=== PATIENT | male | born 1960 | race Caucasian/White ===

== ENCOUNTER 2017-06-01 16:17 | Inpatient (IN) | payer OTHER ==
[2017-06-01] MEDS ORDERED: NS 1,000 ML IV ONE (16:28)
--- NOTE | 2017-06-01 16:28 | EDPHY ---
H & P Stated Complaint: sob/cough/fever/hypoxia sick 11 days Source: Patient Exam Limitations: No limitations - Personal History Current Tetanus/Diphtheria Vaccine: Yes - Medical/Surgical History Hx Asthma: No Hx Chronic Respiratory Disease: No Hx Diabetes: No Hx Cardiac Disease: No Hx Renal Disease: No Hx Cirrhosis: No Hx Alcoholism: No Hx HIV/AIDS: No Hx Splenectomy or Spleen Trauma: No Other PMH: orho surg/mesh hernia - Social History Smoking Status: Never smoked Time Seen by Provider: 06/01/17 16:27 HPI/ROS: HPI: This is a 56-year-old male who presents with Chief Complaint: Possible pneumonia and hypoxia Location: Chest Quality: Cough Duration: 1 week Signs and Symptoms: + fever, + chills, + fatigue, + nonproductive cough, + shortness of breath, no chest pain, no wheezing, no lower extremity edema Timing: Gradually worsening Severity: Moderate Context: Patient presents with complaints of nonproductive cough, fever, chills , and worsening shortness of breath over the last week. His fever has been high as 104 at home and occurs mostly at 4:30 a.m. in the morning. He believes that he initially had the flu and now may have pneumonia. He was sent to the emergency room by his home visit physician who noted his sats to be 86% on room air. No prior history of lung disease/tobacco use. No history of cardiac disease. Last dose of ibuprofen was at 4:00 p.m. no other family members are sick. He has been trying to drink fluids, rest and take antipyretics. He complains that his abdominal muscles hurt from coughing so much. Modifying Factors: Ibuprofen, fluids, rest Comment: ROS: see HPI Constitutional: + fever, + chills, no weight loss Eyes: No blurred vision Respiratory: + shortness of breath, + cough Cardiovascular: No chest pain Gastrointestinal: No nausea, no vomiting, no diarrhea Genitourinary: No dysuria Extremities: No myalgias Neurologic: No weakness, no numbness Skin: No rashes Hematologic: No bruising, no bleeding MEDICAL/SURGICAL/SOCIAL HISTORY: Medical history: Generally healthy. Does not take any regular medications. Surgical history: Umbilical hernia repair with mesh, labral repair, rotator cuff repair Social history: . Employed. CONSTITUTIONAL: Ill-appearing adult white male, pleasant and cooperative, at bedside, awake and alert, no obvious distress HEENT: Atraumatic and normocephalic, PERRL, EOMI. Tympanic membranes clear. Oropharynx clear, no exudate and moist pink mucosa. Airway patent. No lymphadenopathy. No meningismus. Cardiovascular: Normal S1/S2, tachycardia, regular rhythm, without murmur rub or gallop. PULMONARY/CHEST: Symmetrical and nontender. Clear to auscultation bilaterally. Good air movement. No accessory muscle usage. ABDOMEN: Soft, nondistended, nontender, no rebound, no guarding, no peritoneal signs, no masses or organomegaly. No CVAT. EXTREMITIES: 2/2 pulses, no deformities, no clubbing, no cyanosis or edema. NEUROLOGICAL: no focal neuro deficits. GCS 15. SKIN: Warm and dry, no erythema. no rash. Good capillary refill. (Clemencia Mcmillan) Constitutional: Initial Vital Signs Temperature (C) 39.2 C H 06/01/17 16:21 Heart Rate 105 H 06/01/17 16:21 Respiratory Rate 20 06/01/17 16:21 Blood Pressure 156/82 H 06/01/17 16:21 O2 Sat (%) 83 L 06/01/17 16:21 O2 Delivery Mode Nasal Cannula O2 (L/minute) 3 Allergies/Adverse Reactions: No Known Allergies Allergy (Verified 06/01/17 17:25) Home Medications: Medication Instructions Recorded Acetaminophen/ASA/Caffeine 1 each PO DAILY PRN 06/01/17 [Excedrin Tablet (*)] Ibuprofen [Motrin (*)] 200 - 600 mg PO Q4-6PRN PRN 06/01/17 [place]-3 Fatty Acids [Fish Oil 1000 1,000 mg PO DAILY 06/01/17 mg (*)] Pseudoephedrine HCl [Sudafed 12 120 mg PO BID PRN 06/01/17 Hour 120mg (*)] guaiFENesin/DEXTROMETHORPHAN 1 each PO BID@08,20 PRN 06/01/17 [Mucinex Dm ER 1,200-60 mg Tab] Medical Decision Making - Diagnostics Imaging Results: Imaging Impressions Chest X-Ray 06/01/17 16:28 Impression: Bilateral pneumonia. Chest/Thorax CTA 06/01/17 17:18 Impression: 1. No pulmonary embolism. 2. Extensive multilobar pneumonia. Basically the only segment that is relatively spared is left upper lobe. Findings discussed with Clemencia Mcmillan PA-C, at 1834 hours, 06/01/2017. Final report concurs with initial preliminary interpretation. Procedures: 12 lead EKG: Indication: Dyspnea Rhythm: Sinus tachycardia, rate 99 bpm [place]: Normal Intervals: Normal QRS: Normal ST segments: Normal T waves: Nonspecific changes INTERPRETATION: No acute ischemic changes The 12 lead EKG was interpreted by myself and with attending. (Clemencia Mcmillan) ED Course/Re-evaluation: The patient was evaluated and managed by the physician's sales operations assistant. My cosignature indicates that I reviewed the chart and I agree with the findings and plan of care as documented. I am the secondary supervising physician. ( Tanya Rojas) Labs, chest x-ray, EKG, IV fluids, oral medications, blood cultures, IV medication, nebulizer therapy ordered Vital signs upon arrival noted and O2 sats 83% on room air, tachycardic, febrile Sepsis workup initiated for pulmonary source. 1700: Chest x-ray reviewed via PACs and shows bilateral opacities in the lower lobes as well as right middle lobe. IV Rocephin and Zithromax given. 1718: Labs reviewed: Leukocytosis and elevated D-dimer noted; CTA chest ordered no pulmonary embolism 1920: ED decision to consult for admission. Spoke with hospitalist Dr. Cherie Raygoza who kindly accepts patient (Clemencia Mcmillan) Differential Diagnosis: Shortness of breath including but not limited to pulmonary infectious process, COPD, asthma, pulmonary embolus and congestive heart failure. (Clemencia Mcmillan) - Data Points Laboratory Results: Laboratory Results 06/01/17 16:35 06/01/17 16:35 06/01/17 06/01/17 06/01/17 19:10 16:35 16:35 WBC RBC Hgb Hct MCV MCH MCHC RDW Plt Count MPV Neut % (Auto) Lymph % (Auto) [place] % (Auto) Eos % (Auto) Baso % (Auto) Nucleat RBC Rel Count Absolute Neuts (auto) Absolute Lymphs (auto) Absolute Monos (auto) Absolute Eos (auto) Absolute Basos (auto) Absolute Nucleated RBC Immature Gran % Seg Neutrophils % Band Neutrophils % Lymphocytes % Monocytes % Eosinophils % Immature Gran # Absolute Seg Neuts Absolute Band Neuts Absolute Lymphocytes Absolute Monocytes Absolute Eosinophils RBC/WBC/PLT Morphology Platelet Estimate D-Dimer 3.57 ug/mLFEU H ug/mLFEU (0.00-0.50) VBG Lactic Acid Sodium 134 mEq/L mEq/L (134-144) Potassium 4.1 mEq/L mEq/L (3.5-5.2) Chloride 95 mEq/L L mEq/L (97-110) Carbon Dioxide 26 mEq/l mEq/l (22-31) Anion Gap 13 mEq/L mEq/L (8-16) BUN 7 mg/dL mg/dL (7-23) Creatinine 0.9 mg/dL mg/dL (0.7-1.3) Estimated GFR > 60 Glucose 136 mg/dL H mg/dL (70-100) Calcium 8.5 mg/dL mg/dL (8.5-10.4) Troponin I < 0.012 ng/mL ng/mL (0.000-0.034) NT-Pro-B Natriuret Pep 273 pg/mL H pg/mL (0-125) Urine Color Pending Urine Appearance Pending Urine pH Pending Ur Specific [place] Pending Urine Protein Pending Urine Ketones Pending Urine Blood Pending Urine Nitrate Pending Urine Bilirubin Pending Urine Urobilinogen Pending Ur Leukocyte Esterase Pending Urine Glucose Pending 06/01/17 06/01/17 16:35 16:35 WBC 16.36 10^3/uL H 10^3/uL (3.80-9.50) RBC 3.82 10^6/uL L 10^6/uL (4.40-6.38) Hgb 12.7 g/dL L g/dL (13.7-17.5) Hct 35.9 % L % (40.0-51.0) MCV 94.0 fL fL (81.5-99.8) MCH 33.2 pg pg (27.9-34.1) MCHC 35.4 g/dL g/dL (32.4-36.7) RDW 13.2 % % (11.5-15.2) Plt Count 519 10^3/uL H 10^3/uL (150-400) MPV 8.6 fL L fL (8.7-11.7) Neut % (Auto) Not Reported Lymph % (Auto) Not Reported [place] % (Auto) Not Reported Eos % (Auto) Not Reported Baso % (Auto) Not Reported Nucleat RBC Rel Count 0.0 % % (0.0-0.2) Absolute Neuts (auto) Not Reported Absolute Lymphs (auto) Not Reported Absolute Monos (auto) Not Reported Absolute Eos (auto) Not Reported Absolute Basos (auto) Not Reported Absolute Nucleated RBC 0.00 10^3/uL 10^3/uL (0-0.01) Immature Gran % Not Reported Seg Neutrophils % 59 % % Band Neutrophils % 25 % % Lymphocytes % 8 % % Monocytes % 6 % % Eosinophils % 2 % % Immature Gran # Not Reported Absolute Seg Neuts 9.65 10^/uL H 10^/uL (1.70-6.50) Absolute Band Neuts 4.09 10^3/uL H 10^3/uL (0.00-0.70) Absolute Lymphocytes 1.31 10^3/uL 10^3/uL (1.00-3.00) Absolute Monocytes 0.98 10^3/uL H 10^3/uL (0.30-0.80) Absolute Eosinophils 0.33 10^3/uL 10^3/uL (0.03-0.40) RBC/WBC/PLT Morphology NORMAL (NORMAL) Platelet Estimate INCREASED H (ADEQ) D-Dimer VBG Lactic Acid 1.0 mmol/L mmol/L (0.7-2.1) Sodium Potassium Chloride Carbon Dioxide Anion Gap BUN Creatinine Estimated GFR Glucose Calcium Troponin I NT-Pro-B Natriuret Pep Urine Color Urine Appearance Urine pH Ur Specific [place] Urine Protein Urine Ketones Urine Blood Urine Nitrate Urine Bilirubin Urine Urobilinogen Ur Leukocyte Esterase Urine Glucose Microbiology Results: MICROBIOLOGY 06/01/17 17:10 Nasal, Sinus - Swab Respiratory Panel (PCR) - Final Mycoplasma Pneumoniae Detected Medications Given: Discontinued Medications Acetaminophen (Tylenol) 1,000 mg PO EDNOW ONE Stop: 06/01/17 16:36 Last Admin: 06/01/17 16:44 Dose: 1,000 mg Sodium Chloride (Ns) 1,000 mls @ 0 mls/hr IV ONCE ONE; Wide Open PRN Reason: Protocol Stop: 06/01/17 16:29 Last Admin: 06/01/17 16:45 Dose: 1,000 mls Sodium Chloride (Ns) 2,200 mls @ 4,400 mls/hr 30 ml/kg infuse over 30 min ( 2200 ml) IV EDNOW ONE PRN Reason: Protocol Stop: 06/01/17 17:07 Last Admin: 06/01/17 16:51 Dose: 2,200 mls Azithromycin 500 mg/ Dextrose 255 mls @ 255 mls/hr IV EDNOW ONE PRN Reason: Protocol Stop: 06/01/17 18:03 Last Admin: 06/01/17 18:51 Dose: 255 mls Ceftriaxone Sodium 2 gm/ (Dextrose) 50 mls @ 100 mls/hr IV EDNOW ONE PRN Reason: Protocol Stop: 06/01/17 17:33 Last Admin: 06/01/17 17:48 Dose: 50 mls Levalbuterol (Xopenex 0.31mg Neb) 0.31 mg IH EDNOW ONE Stop: 06/01/17 16:33 Last Admin: 06/01/17 16:52 Dose: 0.31 mg Departure - Departure Disposition: [facility] Inpatient Acute Clinical Impression: Community acquired pneumonia Qualifiers: Laterality: unspecified laterality Qualified Code(s): J18.9 - Pneumonia, unspecified organism
[2017-06-01] MEDS ORDERED: LEVALBUTEROL 0.31 MG/3 ML DEYVIAL IH ONE (16:32)
[2017-06-01] MEDS ORDERED: ACETAMINOPHEN 500 MG TAB PO ONE (16:35)
[2017-06-01] MEDS ORDERED: NS 2,200 ML IV ONE (16:38)
[2017-06-01 16:43] LABS: ADD DIFF? YES; ADD MORPH? NO; ADD SCAN? NO; ATYPICAL LYMPHOCYTE FLAG 80 (0-99); FRAGMENT RBC FLAG 0 (0-99); HEMATOCRIT 35.9 % (40.0-51.0); HEMOGLOBIN 12.7 g/dL (13.7-17.5); LEFT SHIFT FLG 30 (0-99); LIPEMIA HEMOLYSIS FLAG 90 (0-99); MEAN CELL HEMOGLOBIN 33.2 pg (27.9-34.1); MEAN CELL HEMOGLOBIN CONCENTR. 35.4 g/dL (32.4-36.7); MEAN PLATELET VOLUME 8.6 fL (8.7-11.7); PLATELET CLUMPS FLAG 0 (0-99); PLATELET COUNT 519 10^3/uL (150-400); RED BLOOD CELL COUNT 3.82 10^6/uL (4.40-6.38); RED CELL DISTRIBUTION WIDTH 13.2 % (11.5-15.2)
--- NOTE | 2017-06-01 16:48 | CPEKG ---
Heart Rate: 99 RR Interval: 606 P-R Interval: 152 QRSD Interval: 94 QT Interval: 328 QTC Interval: 421 P [place]: 2 QRS [place]: 54 T Wave [place]: -7 EKG Severity - BORDERLINE ECG - EKG Impression: SINUS RHYTHM EKG Impression: BORDERLINE T ABNORMALITIES, INFERIOR LEADS Electronically Signed By: Tanya Rojas 01-Jun-2017 20:36:44
[2017-06-01 17:04] LABS: ANION GAP 13 mEq/L (8-16); CALCIUM 8.5 mg/dL (8.5-10.4); CARBON DIOXIDE 26 mEq/l (22-31); CHLORIDE 95 mEq/L (97-110); CREATININE 0.9 mg/dL (0.7-1.3); GLOMERULAR FILTRATION RATE > 60; GLUCOSE 136 mg/dL (70-100); POTASSIUM 4.1 mEq/L (3.5-5.2); SODIUM 134 mEq/L (134-144)
[2017-06-01] MEDS ORDERED: cefTRIAXone 2 GM in D5W 50 ML IV ONE (17:04)
[2017-06-01] MEDS ORDERED: AZITHROMYCIN IV 500 MG in D5W 250 ML IV ONE (17:04)
[2017-06-01 17:16] LABS: TROPONIN I < 0.012 ng/mL (0.000-0.034)
[2017-06-01 17:33] LABS: PLATELET ESTIMATE INCREASED (ADEQ)
[2017-06-01] MEDS ORDERED: IOPAMIDOL (ISOVUE 370) 100 ML BTL IV ONE (17:55)
[2017-06-01 19:24] LABS: COLOR PALE YELLOW; LEUKOCYTE ESTERASE,URINE NEGATIVE (NEGATIVE); NITRITE,URINE NEGATIVE (NEGATIVE)
[2017-06-01] MEDS ORDERED: ONDANSETRON 4 MG/2 ML VIAL IVP PRN (22:05)
[2017-06-01] MEDS ORDERED: ONDANSETRON DISINTEGRATING 4 MG TAB PO PRN (22:05)
[2017-06-01] MEDS ORDERED: ALBUTEROL 3 ML DEYVIAL IH PRN (22:05)
--- NOTE | 2017-06-02 00:39 | PDGENHP ---
History and Physical - Chief Complaint Cough - History of Present Illness 56 yo M w/ no significant PMHx presents with 1 week of respiratory symptoms. Patient reports 1 week of fever, chills, sinus pain, cough, and progressive shortness of breath. This progressed until he decided to come the ED today. He has no significant past pulmonary history. History Information - Allergies/Home Medication List Allergies/Adverse Reactions: No Known Allergies Allergy (Verified 06/01/17 17:25) Home Medications: Acetaminophen/ASA/Caffeine [Excedrin Tablet (*)] 1 each PO DAILY PRN 06/01/17 [ Last Taken 06/01/17] Ibuprofen [Motrin (*)] 200 - 600 mg PO Q4-6PRN PRN 06/01/17 [Last Taken 12:00] [place]-3 Fatty Acids [Fish Oil 1000 mg (*)] 1,000 mg PO DAILY 06/01/17 [Last Taken Unknown] Pseudoephedrine HCl [Sudafed 12 Hour 120mg (*)] 120 mg PO BID PRN 06/01/17 [ Last Taken 05/31/17] guaiFENesin/DEXTROMETHORPHAN [Mucinex Dm ER 1,200-60 mg Tab] 1 each PO BID@08, 20 PRN 06/01/17 [Last Taken 06/01/17] I have personally reviewed and updated: family history, medical history - Past Medical History no pertinent PMH - Family History Positive for: cancer - Social History Smoking Status: Never smoked Review of Systems Review of Systems: ROS: 10pt was reviewed & negative except for what was stated in HPI & below Physical Exam Physical Exam: Temp Pulse Resp BP Pulse Ox 36.5 C 80 18 110/84 H 91 L 06/01/17 20:23 06/01/17 20:23 06/01/17 20:23 06/01/17 20:23 06/01/17 20:23 O2 (L/minute) 3 Constitutional: no apparent distress, appears nourished Eyes: PERRL, EOMI Ears, Nose, Mouth, Throat: moist mucous membranes, no oral mucosal ulcers Cardiovascular: regular rate and rhythym, no murmur, rub, or gallop Respiratory: no respiratory distress, rhonchi (Diffuse) Gastrointestinal: normoactive bowel sounds, soft, non-tender abdomen Skin: warm, normal color Musculoskeletal: full muscle strength, no muscle tenderness Neurologic: AAOx3, CN II-XII Intact Psychiatric: interacting appropriately, not anxious Lab Data & Imaging Review 06/01/17 16:35 06/01/17 16:35 WBC 16.36 10^3/uL (3.80-9.50) H 06/01/17 16:35 RBC 3.82 10^6/uL (4.40-6.38) L 06/01/17 16:35 Hgb 12.7 g/dL (13.7-17.5) L 06/01/17 16:35 Hct 35.9 % (40.0-51.0) L 06/01/17 16:35 MCV 94.0 fL (81.5-99.8) 06/01/17 16:35 MCH 33.2 pg (27.9-34.1) 06/01/17 16:35 MCHC 35.4 g/dL (32.4-36.7) 06/01/17 16:35 RDW 13.2 % (11.5-15.2) 06/01/17 16:35 Plt Count 519 10^3/uL (150-400) H 06/01/17 16:35 MPV 8.6 fL (8.7-11.7) L 06/01/17 16:35 Neut % (Auto) Not Reported 06/01/17 16:35 Lymph % (Auto) Not Reported 06/01/17 16:35 [place] % (Auto) Not Reported 06/01/17 16:35 Eos % (Auto) Not Reported 06/01/17 16:35 Baso % (Auto) Not Reported 06/01/17 16:35 Nucleat RBC Rel Count 0.0 % (0.0-0.2) 06/01/17 16:35 Absolute Neuts (auto) Not Reported 06/01/17 16:35 Absolute Lymphs (auto) Not Reported 06/01/17 16:35 Absolute Monos (auto) Not Reported 06/01/17 16:35 Absolute Eos (auto) Not Reported 06/01/17 16:35 Absolute Basos (auto) Not Reported 06/01/17 16:35 Absolute Nucleated RBC 0.00 10^3/uL (0-0.01) 06/01/17 16:35 Immature Gran % Not Reported 06/01/17 16:35 Seg Neutrophils % 59 % 06/01/17 16:35 Band Neutrophils % 25 % 06/01/17 16:35 Lymphocytes % 8 % 06/01/17 16:35 Monocytes % 6 % 06/01/17 16:35 Eosinophils % 2 % 06/01/17 16:35 Immature Gran # Not Reported 06/01/17 16:35 Absolute Seg Neuts 9.65 10^/uL (1.70-6.50) H 06/01/17 16:35 Absolute Band Neuts 4.09 10^3/uL (0.00-0.70) H 06/01/17 16:35 Absolute Lymphocytes 1.31 10^3/uL (1.00-3.00) 06/01/17 16:35 Absolute Monocytes 0.98 10^3/uL (0.30-0.80) H 06/01/17 16:35 Absolute Eosinophils 0.33 10^3/uL (0.03-0.40) 06/01/17 16:35 RBC/WBC/PLT Morphology NORMAL (NORMAL) 06/01/17 16:35 Platelet Estimate INCREASED (ADEQ) H 06/01/17 16:35 D-Dimer 3.57 ug/mLFEU (0.00-0.50) H 06/01/17 16:35 VBG Lactic Acid 1.0 mmol/L (0.7-2.1) 06/01/17 16:35 Sodium 134 mEq/L (134-144) 06/01/17 16:35 Potassium 4.1 mEq/L (3.5-5.2) 06/01/17 16:35 Chloride 95 mEq/L (97-110) L 06/01/17 16:35 Carbon Dioxide 26 mEq/l (22-31) 06/01/17 16:35 Anion Gap 13 mEq/L (8-16) 06/01/17 16:35 BUN 7 mg/dL (7-23) 06/01/17 16:35 Creatinine 0.9 mg/dL (0.7-1.3) 06/01/17 16:35 Estimated GFR > 60 06/01/17 16:35 Glucose 136 mg/dL (70-100) H 06/01/17 16:35 Calcium 8.5 mg/dL (8.5-10.4) 06/01/17 16:35 Troponin I < 0.012 ng/mL (0.000-0.034) 06/01/17 16:35 NT-Pro-B Natriuret Pep 273 pg/mL (0-125) H 06/01/17 16:35 Urine Color PALE YELLOW 06/01/17 19:10 Urine Appearance CLEAR 06/01/17 19:10 Urine pH 6.0 (5.0-7.5) 06/01/17 19:10 Ur Specific [place] 1.017 (1.002-1.030) 06/01/17 19:10 Urine Protein NEGATIVE (NEGATIVE) 06/01/17 19:10 Urine Ketones NEGATIVE (NEGATIVE) 06/01/17 19:10 Urine Blood NEGATIVE (NEGATIVE) 06/01/17 19:10 Urine Nitrate NEGATIVE (NEGATIVE) 06/01/17 19:10 Urine Bilirubin NEGATIVE (NEGATIVE) 06/01/17 19:10 Urine Urobilinogen NEGATIVE EU (0.2-1.0) 06/01/17 19:10 Ur Leukocyte Esterase NEGATIVE (NEGATIVE) 06/01/17 19:10 Urine Glucose NEGATIVE (NEGATIVE) 06/01/17 19:10 Imaging Review: CTA chest without PE but notable for multifocal pneumonia. Visualized and Interpreted Chest x-ray results: Yes Chest X-Ray results: infiltrate (Multifocal) Assessment & Plan Assessment: 56 yo M presents with multifocal pneumonia, most likely 2/2 Mycoplasma. Plan: 1. Multifocal pneumonia - Respiratory PCR notable for Mycoplasma pneumoniae, which is likely causative. WBC of 16 and c/b hypoxia. - Continue on CTX/azithro for now, can likely d/c on Azithro PO only once improved - Albuterol PRN 2. AHRF - 2/2 above, requiring 3 L/min via NC currently to maintain sats. CTPE negative for PE. - Acute treatment as above, wean O2 as able Diet - Regular Code - Full Ppx - LMWH Dispo - Admit to observation status
[2017-06-02] MEDS: ACETAMINOPHEN 325 MG TAB PO PRN ×2 (01:02→13:05)
[2017-06-02 05:50] LABS: ANION GAP 12 mEq/L (8-16); CALCIUM 8.3 mg/dL (8.5-10.4); CARBON DIOXIDE 27 mEq/l (22-31); CHLORIDE 101 mEq/L (97-110); CREATININE 0.9 mg/dL (0.7-1.3); GLOMERULAR FILTRATION RATE > 60; GLUCOSE 107 mg/dL (70-100); POTASSIUM 4.6 mEq/L (3.5-5.2); SODIUM 140 mEq/L (134-144)
[2017-06-02 06:20] LABS: ADD DIFF? YES; ADD MORPH? NO; ADD SCAN? NO; ATYPICAL LYMPHOCYTE FLAG 80 (0-99); FRAGMENT RBC FLAG 0 (0-99); HEMATOCRIT 33.1 % (40.0-51.0); HEMOGLOBIN 11.3 g/dL (13.7-17.5); LEFT SHIFT FLG 20 (0-99); LIPEMIA HEMOLYSIS FLAG 90 (0-99); MEAN CELL HEMOGLOBIN 32.9 pg (27.9-34.1); MEAN CELL HEMOGLOBIN CONCENTR. 34.1 g/dL (32.4-36.7); MEAN CELL VOLUME 96.5 fL (81.5-99.8); MEAN PLATELET VOLUME 8.6 fL (8.7-11.7); PLATELET CLUMPS FLAG 0 (0-99); PLATELET COUNT 468 10^3/uL (150-400); RED BLOOD CELL COUNT 3.43 10^6/uL (4.40-6.38); RED CELL DISTRIBUTION WIDTH 13.5 % (11.5-15.2)
[2017-06-02 06:54] LABS: PLATELET ESTIMATE INCREASED (ADEQ)
[2017-06-02] MEDS ORDERED: ACETAMINOPHEN/ASA/CAFFEINE 1 EACH TAB PO PRN (07:51)
[2017-06-02] MEDS: AZITHROMYCIN 250 MG TAB PO SCH (10:00)
[2017-06-02] MEDS: ENOXAPARIN 40 MG/0.4 ML SYR SC SCH (10:00)
[2017-06-02] MEDS: OMEGA-3 FATTY ACIDS 1,000 MG CAP PO SCH (10:00)
--- NOTE | 2017-06-02 12:06 | HOSPPROG ---
Hospitalist Progress Note Assessment/Plan: CTA chest without PE but notable for multifocal pneumonia. Visualized and Interpreted Chest x-ray results: Yes Chest X-Ray results: infiltrate (Multifocal) 56 yo M presents with multifocal pneumonia, most likely 2/2 Mycoplasma. Today is my first encounter with the patient/chart reviewed *Multifocal pna/ Mycoplasma -on CTX/Azithro -dc on oral Azithro once he improves -febrile yesterday, continue to be on 3 liters of O2 -had procalcitonin to labs -cont nebs -CTA shows extensive multilobar pneumonia *sepsis -elevated wbc, elevated temp, lactate stable -blood cx pending *Acute hypoxemic respiratory failure -usually on room air -secondary from the above -CTA shows no PE *elevated d dimer -no PE *Plan: repeat labs in a.m. Patient will require another midnight stay for close monitoring/ this will make him IP status Subjective: Damir feels poorly, has had no appetite. Objective: Vital Signs Temp Pulse Resp BP Pulse Ox 36.8 C 74 16 109/84 H 96 06/02/17 08:00 06/02/17 08:00 06/02/17 08:00 06/02/17 08:00 06/02/17 08:00 Laboratory Results 06/02/17 06:14 06/02/17 04:55 06/01/17 06/02/17 06/03/17 05:59 05:59 05:59 Intake Total 2200 Balance 2200 - Physical Exam Constitutional: appears nourished, not in pain Eyes: PERRL Ears, Nose, Mouth, Throat: hearing normal Cardiovascular: regular rate and rhythym Respiratory: no respiratory distress, reduced air movement (right middle lobe down, few scattered rhonchi in left lower lobe) Skin: warm Musculoskeletal: full muscle strength Neurologic: AAOx3 Psychiatric: interacting appropriately ICD10 Worksheet Patient Problems: Problems Problem Status Onset Community acquired pneumonia Acute
[2017-06-02] MEDS: guaiFENesin 600 MG TAB.ER PO SCH ×2 (13:08→20:02)
--- NOTE | 2017-06-02 14:56 | ASMTCASEMG ---
Living Arrangements What is your living Answers: With Spouse arrangement? Who do you live with? Type Of Residence What kind of residence do Answers: House you live in? Discharge Plan Comments Coordination Status Comments Notes: Pt is a 56 y/o man admitted w/ CAP, hypoxia and pneumonia. Pt will most likely d/c w/ supportive when medically stable. No therapies ordered at this time. CM available for changes should d/c needs arise. Date Signed: 06/02/2017 02:55 PM Electronically Signed By:JOHN Calzada
[2017-06-02] MEDS ORDERED: CANN-EASE 2 GM TUBE TP PRN (16:38)
--- NOTE | 2017-06-02 16:44 | PDMN ---
Medical Necessity Medical necessity: Patient meets INPT criteria per [employer] SU[employer]IST note and MCG M-282 Pneumonia, Community Acquired (room air sat 83% on admission, mycoplasma pneumonia on resp panel; CXR shows extensive multifocal pneumonia; sepsis w/ continued leukocytosis (WBC 16.3 -> 14.3). LOS will be > 2 midnights for ongoing IV Rocephin for sepsis, continued leukocytosis.)
[2017-06-03 06:07] LABS: ALANINE AMINOTRANSFERASE 54 IU/L (21-72); ALBUMIN 2.7 g/dL (3.5-5.0); ALKALINE PHOSPHATASE 67 IU/L (38-126); ANION GAP 12 mEq/L (8-16); ASPARTATE AMINOTRANSFERASE 46 IU/L (17-59); BILIRUBIN,TOTAL 0.2 mg/dL (0.1-1.4); CALCIUM 8.3 mg/dL (8.5-10.4); CARBON DIOXIDE 25 mEq/l (22-31); CHLORIDE 102 mEq/L (97-110); CREATININE 0.8 mg/dL (0.7-1.3); GLOMERULAR FILTRATION RATE > 60; GLUCOSE 101 mg/dL (70-100); POTASSIUM 4.6 mEq/L (3.5-5.2); SODIUM 139 mEq/L (134-144); TOTAL PROTEIN 5.5 g/dL (6.3-8.2)
[2017-06-03 06:20] LABS: ADD DIFF? YES; ADD MORPH? NO; FRAGMENT RBC FLAG 0 (0-99); HEMATOCRIT 33.2 % (40.0-51.0); HEMOGLOBIN 11.5 g/dL (13.7-17.5); LEFT SHIFT FLG 30 (0-99); LIPEMIA HEMOLYSIS FLAG 90 (0-99); MEAN CELL HEMOGLOBIN 33.8 pg (27.9-34.1); MEAN CELL HEMOGLOBIN CONCENTR. 34.6 g/dL (32.4-36.7); MEAN CELL VOLUME 97.6 fL (81.5-99.8); MEAN PLATELET VOLUME 9.1 fL (8.7-11.7); PLATELET CLUMPS FLAG 0 (0-99); PLATELET COUNT 553 10^3/uL (150-400); RED CELL DISTRIBUTION WIDTH 13.5 % (11.5-15.2)
[2017-06-03 06:24] LABS: ATYPICAL LYMPHOCYTE FLAG 130 (0-99)
[2017-06-03 06:25] LABS: ADD SCAN? NO
[2017-06-03 07:02] LABS: PLATELET ESTIMATE INCREASED (ADEQ)
[2017-06-03] MEDS: AZITHROMYCIN 250 MG TAB PO SCH (09:05)
[2017-06-03] MEDS: guaiFENesin 600 MG TAB.ER PO SCH ×2 (09:05→20:33)
[2017-06-03] MEDS: ENOXAPARIN 40 MG/0.4 ML SYR SC SCH (09:05)
[2017-06-03] MEDS: OMEGA-3 FATTY ACIDS 1,000 MG CAP PO SCH (09:05)
--- NOTE | 2017-06-03 14:49 | HOSPPROG ---
Hospitalist Progress Note Assessment/Plan: 56 yo M presents with multifocal pneumonia, most likely 2/2 Mycoplasma. *Multifocal pna/ Mycoplasma -on CTX/Azithro -continues to need 3 liters of O2 and is short of breath w talking -order acapella valve, scheduled duonebs/ starting to move secretions better with mucinex -CTA shows extensive multilobar pneumonia *sepsis -elevated wbc, elevated temp, lactate stable -blood cx show no growth -wbc improving *Acute hypoxemic respiratory failure -usually on room air -secondary from the above -CTA shows no PE -will get a repeat chest xray in a.m. *elevated d dimer -no PE *Plan: Damir is still requiring 3 liters of oxygen/ feels better, but still short of breath/ not quite ready for dc at this time. Recheck labs in a.m. Recheck chest xray in a.m. Subjective: Damir says overall he is feeling better but is still short of breath. Objective: Vital Signs Temp Pulse Resp BP Pulse Ox 36.9 C 75 16 112/74 91 L 06/03/17 11:56 06/03/17 11:56 06/03/17 11:56 06/03/17 11:56 06/03/17 11:56 Laboratory Results 06/03/17 05:05 06/03/17 05:05 - Physical Exam Constitutional: no apparent distress, appears nourished, not in pain Eyes: PERRL Ears, Nose, Mouth, Throat: hearing normal Cardiovascular: regular rate and rhythym Respiratory: no respiratory distress, reduced air movement, rhonchi Skin: warm Musculoskeletal: full muscle strength Neurologic: AAOx3 Psychiatric: interacting appropriately ICD10 Worksheet Patient Problems: Problems Problem Status Onset Community acquired pneumonia Acute
[2017-06-03] MEDS: IPRATROPIUM/ALBUTEROL 3 ML DEYVIAL IH SCH (16:58)
[2017-06-04] MEDS: IPRATROPIUM/ALBUTEROL 3 ML DEYVIAL IH SCH ×3 (00:11→11:04)
[2017-06-04 05:42] LABS: ADD DIFF? YES; ADD MORPH? NO; FRAGMENT RBC FLAG 0 (0-99); HEMATOCRIT 31.9 % (40.0-51.0); HEMOGLOBIN 10.9 g/dL (13.7-17.5); LEFT SHIFT FLG 40 (0-99); LIPEMIA HEMOLYSIS FLAG 90 (0-99); MEAN CELL HEMOGLOBIN CONCENTR. 34.2 g/dL (32.4-36.7); MEAN CELL VOLUME 96.7 fL (81.5-99.8); MEAN PLATELET VOLUME 8.9 fL (8.7-11.7); PLATELET CLUMPS FLAG 0 (0-99); PLATELET COUNT 575 10^3/uL (150-400); RED CELL DISTRIBUTION WIDTH 13.6 % (11.5-15.2)
[2017-06-04 05:44] LABS: ADD SCAN? NO; ATYPICAL LYMPHOCYTE FLAG 180 (0-99)
[2017-06-04 06:09] LABS: PLATELET ESTIMATE INCREASED (ADEQ); TOXIC GRANULATION PRESENT
[2017-06-04] MEDS: guaiFENesin 600 MG TAB.ER PO SCH (08:33)
[2017-06-04] MEDS: AZITHROMYCIN 250 MG TAB PO SCH (08:33)
[2017-06-04] MEDS: OMEGA-3 FATTY ACIDS 1,000 MG CAP PO SCH (08:33)
[2017-06-04] MEDS: ENOXAPARIN 40 MG/0.4 ML SYR SC SCH (08:33)
[2017-06-04 09:00] VITALS: BP 120/84; TEMP 97.9
--- NOTE | 2017-06-04 10:46 | PDHOMEO2F ---
Home Oxygen Face to Face Home Orders: I certify that a physician or a nurse practitioner or physician's surgical supply assistant has had a [id number] encounter with this patient on the date of this order due to the diagnosis listed, which relates to the primary reason the patient requires home oxygen. Alternative treatments have been tried, or considered, and deemed ineffective. It is anticipated that supplemental oxygen will result in improvement with treatment. Home oxygen qualifying diagnosis: PNA SpO2 on room air (%): 85 Frequency of home oxygen needed: continuous Home oxygen liters per minute: 1 Home oxygen delivery device: nasal cannula Concentrator: Yes E-tanks for mobility and back up: Yes If ordering portable O2, is the patient mobile in the home?: Yes I certify that, based on these findings, the home oxygen is medically necessary for this patient for the following length of time. Length of time home oxygen needed: 1 week
[2017-06-04 11:08] VITALS: RESP 18
[2017-06-04 12:22] VITALS: PULSE 106; O2SAT 92
--- NOTE | 2017-06-04 13:17 | GDS ---
[f rep st] DISCHARGE SUMMARY DISCHARGE DIAGNOSES: 1. Mycoplasma pneumonia. 2. Sepsis. 3. Acute hypoxemic respiratory failure. STUDIES AND PROCEDURES DONE: CT angio of the chest. PHYSICAL EXAMINATION: GENERAL: The patient is alert. VITAL SIGNS: Afebrile, 36.6; pulse is 72; re spiratory rate is 18; blood pressure is 120/84; he is saturating 92% on 1 L, less than 88% on room ai r. I have seen and evaluated the patient on the day of discharge. HOSPITAL COURSE: The patient is a 56-year-old male who presented to the emergency room with complain ts of shortness of breath and cough. He was evaluated and diagnosed with: 1. Mycoplasma pneumonia. During this hospitalization. He has been treated with Rocephin, as well a s azithromycin. He will continue azithromycin for a total of 5 days and be transitioned to Levaquin for a total of 7 days. Patient is feeling better. 2. Acute hypoxemic respiratory failure. Patient is requiring supplemental oxygen at the time of dis position. He is saturating less than 88% on room air. I have ordered 1 L of oxygen for him at the t ivan of disposition. 3. Sepsis secondary to acute infectious process and resolved. DISPOSITION: The patient will be discharged home independently. There are no pending studies. DISCHARGE INSTRUCTIONS: Followup will be with his primary care physician. He will continue suppleme ntal oxygen in the outpatient setting with further management arranged by his primary care provider. DISCHARGE MEDICATIONS: Please refer to EMR form. I have provided the patient a prescription for sabina thromycin, as well as Levaquin. I spent greater than 35 minutes in the care, coordination, and management of the patient's dispositio n. /[id number]/MODL
--- NOTE | 2017-06-04 14:18 | ASDISCHSUM ---
Discharge Information Plan Status:Home with No Needs Medically Cleared to Leave: Discharge Date:06/04/2017 01:30 PM CM D/C Disposition:Home, Routine, Self-Care ADT D/C Disposition:Home, Routine, Self-Care Projected Discharge Date:06/03/2017 12:00 AM Transportation at D/C: Discharge Delay Reason: Follow-Up Date:06/03/2017 12:00 AM Discharge Slot: Final Diagnosis: Placement Information Patient Contact Information Contact Name:ARIELLE Relationship: Address:[address] City:[place] Alternate Phone: [facility]/Zip Code:[place] [address] Email: Financial Information Financial Class:[employer] Primary Plan Desc:SAMEER BERMEO Primary Plan Number:[id number] Secondary Plan Desc: Secondary Plan Number: Assessment Information [facility] [employer] Initial CM Assessment Living Arrangements What is your living Answers: With Spouse arrangement? Who do you live with? Type Of Residence What kind of residence do Answers: House you live in? Discharge Plan Comments Coordination Status Comments Notes: Pt is a 56 y/o man admitted w/ CAP, hypoxia and pneumonia. Pt will most likely d/c w/ supportive when medically stable. No therapies ordered at this time. CM available for changes should d/c needs arise. Date Signed: 06/02/2017 02:55 PM Electronically Signed By:JOHN Calzada Intervention Information Intervention Type:*Incorrect Registration Date of Service:06/01/2017 10:34 AM Patient Type:Observation Staff Member:JEANETTE Page Susan Hours: Discipline: Severity: Comment:
== END 2017-06-04 13:30 | disposition home or self-care (01) | DRG 871 ==
LOC: INTOOBSV 19:21 → F3E 20:10 → OBSVTOIN 06-02 16:19
PROVIDERS: ADMIT Internal Medicine; ATTEND Hospitalist
DX: A41.89 Other specified sepsis (principal); J15.7 Pneumonia due to Mycoplasma pneumoniae; J96.01 Acute respiratory failure with hypoxia
CPT/HCPCS: 96365; G0378; J0456; J0696; J1650; Q9967

== ENCOUNTER → 2017-08-06 | Outpatient (CLI) | payer OTHER | LOC: FIMAGING 11:10 | PROVIDERS: ATTEND Family Medicine | DX: J15.7 Pneumonia due to Mycoplasma pneumoniae (principal) ==